=== PATIENT | female | born 1975 | race Caucasian/White ===

== ENCOUNTER 2023-08-02 15:30 | Outpatient (RCR) | payer OTHER, BC, SELFPAY ==
--- NOTE | 2023-07-14 19:06 | HP.PTEVAL_ITS ---
Patient's Visit Information Visit Information Visit Information: KD CODY is a 48 year old F referred to Physical Therapy by Dr. Neymar Joe MD with a diagnosis of R hip pain and greater trochanteric bursitis. Date of Evaluation: 07/14/23 Physical Therapist: Sal Stiles DPT Visit Plan Frequency: 1-2x /Week Duration: 4 Weeks Plan: 1) STM to R hip/ITB/piriformis 2) Improve R hip/glute strength (glute med VERY weak, difficulty with S/L hip ABD) 3) Stretch hamstrings/piriformis/quads 4) Possible distraction mob of R hip to help with pain 5) Once pain is controlled, introduce weighted lower body ex (pt has hx of low back pain, may benefit from learning proper lifting techniques) (HEP: seated piriformis stretch, supine sciatic nerve glide, standing hip ABD, supine ITB stretch) Subjective Subjective: Pt presents to PT with R hip pain for the last 20 years, but within the last month pain has become unmanageable. Received cortisone shot and has helped pain. Worst pain in 6 or 7/10, aggravated by movement. Notices pain in lateral knee and sometimes big toe. Has a hx of back issues, fell rolling skating a few years ago. Pain can get down to 1 or 2, months since pain completely went away, has had stiffness and notices pain with sitting crossed legged. Pt has begun to do yoga, stretching felt good. Pt gets 4-7 hours of sleep, often interrupted by pain. Has N/T in bed, but seems unrelated to hip pain. Pain Right Hip: Pain Intensity (Out of 10): 1 Objective Objective: ROM: clair limitation in hip IR, pulling in ant hip with end range ER MMT: weakness in clair glute med (R worse, caused referred pain to low back), glute max, TFL/hip flexion, R hamstrings *unable to perform S/L hip ABD with glute med bias, limited range with R hip ext GAIT: B Trendelenburg gait pattern, path deviation but pt reported this is normal for her PALPATION: TTP R glute med, R ITB (proximal to distal tightness and tender), R hamstrings, R iliac crest/TFL, B piriformis (R worse) OTHER: Pain with laying on side, had occasional pain behind R knee with and without pressure to piriformis, no change with prone on elbows position JING- slight anterior pulling, - scour Balance/Special Test Scores Lower Extremity Functional Score: 57 Goals Goal 1:: Pt will report <2/10 pain at its worst with movement Goal Time Frame: 2-4 Weeks Goal 2:: Pt will improve R global hip strength to 4/5 Goal Time Frame: 2-4 Weeks Goal 3:: Pt will be able to sleep 5+ hours consecutively without waking up d/t pain Goal Time Frame: 2-4 Weeks Goal 4:: Pt will be able to perform all work duties with <2/10 pain and/or stiffness in R hip Goal Time Frame: 2-4 Weeks Rehabilitation Potential Physical Therapy Diagnosis: Pt presents with R hip pain and weakness, aggravated by movement which has affected her sleep and quality of life. Pt is appropriate for PT services to assist with glute/hip strength, improve pain free ROM, and in crease pt tolerance to ADLs (especially after prolonged sitting). Rehabilitation Potential: Good Anticipated Interventions Patient/Client Instruction: Educate patient on: Condition and Plan of Care For the Purpose of:: To decrease pain, To increase ROM, To improve muscle performance and motor function, To improve ability to perform ADL's, To increase tolerance to activity/condition/position, To improve ability of physical actions for home/community/work/leisure, To improve gait and locomotor functions, To improve health of tissue, To decrease soft tissue restriction, To increase flexibility/ROM, To improve balance, To improve safety with gait, To improve self management and To improve ability to perform tasks related to life management Therapeutic Exercise to Include: Strength training, Balance training, Body mechanics, Postural training, Flexibilty training and Gait and locomotor training For the Purpose of:: To decrease pain, To increase ROM, To improve muscle performance and motor function, To improve ability to perform ADL's, To increase tolerance to activity/condition/position, To improve performance and independence with ADL's, To improve ability of physical actions for home/community/work/leisure, To improve gait and locomotor functions, To improve health of tissue, To decrease soft tissue restriction, To increase flexibility/ROM, To improve endurance, To improve balance, To foster healthy habits, To improve self management, To improve ability to perform tasks related to life management and To improve tolerance to ADL's Manual Therapy Techniques to Include: Mobilization, Passive ROM, Functional dry needling and Soft tissue mobilization For the Purpose of:: To decrease pain, To increase ROM, To improve nutrient delivery to tissue, To increase oxygenation perfusion, To improve muscle performance and motor function, To improve health of tissue, To decrease soft tissue restriction and To increase flexibility/ROM Cryotherapy (ice pack, ice massage): Yes Thermo therapy (hot pack): Yes For the Purpose of:: To decrease pain, To decrease swelling/inflammation, To improve health of tissue and To decrease soft tissue restriction Text: Thank you for the opportunity to evaluate your patient. For Medicare and Medicare HMO plans, please review the plan of care and approve it. It will need to be FAXED BACK to us at [phone] for Medicare purposes. For Medicare only, by signing this I certify the plan of care. Please let me know if there are questions or concerns regarding this plan of care. Physician Signature: Date:
--- NOTE | 2023-10-07 10:30 | HP.PT.NRP ---
Patient Information Patient Information: KD CODY was seen in my office for initial evaluation on 07/14/23. The following Plan of Care was established for this patient: POC Established Initial Frequency: 1-2x /Week Initial Duration: 4 Weeks Anticipated Interventions Patient/Client Instruction: Educate patient on: Condition and Plan of Care For the Purpose of:: To decrease pain, To increase ROM, To improve muscle performance and motor function, To improve ability to perform ADL's, To increase tolerance to activity/condition/position, To improve ability of physical actions for home/community/work/leisure, To improve gait and locomotor functions, To improve health of tissue, To decrease soft tissue restriction, To increase flexibility/ROM, To improve balance, To improve safety with gait, To improve self management and To improve ability to perform tasks related to life management Therapeutic Exercise to Include: Strength training, Balance training, Body mechanics, Postural training, Flexibilty training and Gait and locomotor training For the Purpose of:: To decrease pain, To increase ROM, To improve muscle performance and motor function, To improve ability to perform ADL's, To increase tolerance to activity/condition/position, To improve performance and independence with ADL's, To improve ability of physical actions for home/community/work/leisure, To improve gait and locomotor functions, To improve health of tissue, To decrease soft tissue restriction, To increase flexibility/ROM, To improve endurance, To improve balance, To foster healthy habits, To improve self management, To improve ability to perform tasks related to life management and To improve tolerance to ADL's Manual Therapy Techniques to Include: Mobilization, Passive ROM, Functional dry needling and Soft tissue mobilization For the Purpose of:: To decrease pain, To increase ROM, To improve nutrient delivery to tissue, To increase oxygenation perfusion, To improve muscle performance and motor function, To improve health of tissue, To decrease soft tissue restriction and To increase flexibility/ROM Cryotherapy (ice pack, ice massage): Yes Thermo therapy (hot pack): Yes For the Purpose of:: To decrease pain, To decrease swelling/inflammation, To improve health of tissue and To decrease soft tissue restriction Last Seen Last Seen: This patient was last seen in our office 08/02/23. Pertinent comments regarding their Physical therapy will appear below: Pt. was seen in PT for her R hip pain. She was slowly progressing. Pt. has not been seen in several weeks and will be DC from PT at this point in time. At this point I will be discontinuing this patient from physical therapy. I would be happy to see this patient again in the future if found appropriate by the physician. Thank you! Sal Stiles, LELIAT Balance/Gait/Functional tests Balance/Special Test Scores Lower Extremity Functional Score: 57
== END 2023-08-02 19:00 | disposition home or self-care (01) ==
LOC: PT 15:30
PROVIDERS: PCP Family Medicine; Referring Provider Orthopaedic Surgery Sports Medicine; Visit Provider Orthopaedic Surgery Sports Medicine
DX: M70.61 Trochanteric bursitis, right hip (principal); M25.551 Pain in right hip
CPT/HCPCS: 97110; 97140; 97161